=== PATIENT | male | born 1970 | race Caucasian/White ===

== ENCOUNTER 2017-10-24 10:21 | Emergency (ER) | payer OTHER ==
[~2017-10-24] VITALS: Ht 162.6 cm; Wt 72.6 kg
[2017-10-24 10:27] VITALS: Ht 162.6 cm; Wt 72.6 kg
[2017-10-24 12:48] LABS: CALCIUM 8.9 mg/dL (8.5-10.1); CARBON DIOXIDE 23.1 mmol/L (21-32); CHLORIDE SERUM 110 mmol/L (98-107); GFR1 > 60 mL/min; GLUCOSE SERUM 122 mg/dL (74-106); POTASSIUM SERUM 3.6 mmol/L (3.5-5.1); SODIUM SERUM 148 mmol/L (136-145)
[2017-10-24 12:52] LABS: BASOPHIL % 0.5 % (0-2); PLATELET COUNT 208 x10^3mcL (130-400); RED CELL DISTRIBUTION WIDTH 13.2 % (11.5-14.5)
[2017-10-24 12:54] LABS: ALBUMIN 3.9 g/dL (3.4-5.0); ALKALINE PHOSPHATASE 105 U/L (46-116); ALT/SGPT 82 U/L (16-63); AST/SGOT 42 U/L (15-37); BILIRUBIN TOTAL 2.39 mg/dL (0.20-1.00); HDL CHOLESTEROL 54 mg/dL (40-60); TOTAL PROTEIN, SERUM 6.9 g/dL (6.4-8.2); TRIGLYCERIDES 75 mg/dL (<150)
[2017-10-24 12:55] LABS: CHOLESTEROL 133 mg/dL (<200); CHOLESTEROL/HDL RATIO 2.5
[2017-10-24 13:00] LABS: T3 TOTAL 0.91 ng/mL
[2017-10-24 13:02] LABS: FREE T4 0.87 ng/dL (0.76-1.46); FREE THYROXINE INDEX 2.2 ug/dL (1.4-4.5); T4(THYROXINE) 5.9 ug/dL (4.7-13.3)
[2017-10-24 13:17] VITALS: BP 142/86
== END 2017-10-24 14:03 | disposition home or self-care (01) ==
LOC: ED 10:21
PROVIDERS: Specialist
DX: F41.9 Anxiety disorder, unspecified (principal); I16.9 Hypertensive crisis, unspecified; J45.909 Unspecified asthma, uncomplicated; Z90.49 Acquired absence of other specified parts of digestive tract
CPT/HCPCS: 36415; 83880; 84439; J2060; Q0092

== ENCOUNTER 2018-01-09 12:59 | Emergency (ER) | payer OTHER ==
[~2018-01-09] VITALS: Ht 162.6 cm; Wt 68.3 kg
[2018-01-09 13:00] VITALS: Ht 162.6 cm; Wt 68.3 kg
[2018-01-09 16:32] VITALS: BP 131/90
== END 2018-01-09 16:32 | disposition home or self-care (01) ==
LOC: ED 12:59
DX: J45.909 Unspecified asthma, uncomplicated (principal); I10 Essential (primary) hypertension
CPT/HCPCS: J7613